=== PATIENT | male | born 1945 | race Caucasian/White ===

== ENCOUNTER 2016-11-20 18:59 | Emergency (ER) | payer OTHER ==
--- NOTE | 2016-11-20 20:36 | DIAGNOSTIC IMAGING REPORT ---
PROCEDURE: XR HUMERUS - LEFT INDICATION: TRAUMA/INJURY TECHNIQUE: Three views of the right humerus COMPARISON: None. FINDINGS: Normal mineralization. Transverse, mildly comminuted fracture across the mid humeral diaphysis. There is moderate lateral angulation, lateral displacement, posterior displacement by one half shaft width and mild impaction/foreshortening of the humeral length. Swelling of the overlying soft tissue but no radiodense foreign body. IMPRESSION: 1. Displaced, impacted, and angulated mid humeral diaphyseal fracture.
--- NOTE | 2016-11-20 20:39 | DIAGNOSTIC IMAGING REPORT ---
PROCEDURE: XR SHOULDER 2 OR MORE VW-LEFT INDICATION: TRAUMA/INJURY TECHNIQUE: Two views of the left shoulder COMPARISON: None. FINDINGS: Normal mineralization. Proximal humeral diaphyseal fracture. No glenohumeral joint dislocation or shoulder separation. Mild degenerative changes at the glenohumeral joint and acromioclavicular joint. No significant swelling around the glenohumeral joint. IMPRESSION: 1. Intact left shoulder. 2. Mid humeral diaphyseal fracture. 3. Mild degenerative changes.
--- NOTE | 2016-11-20 21:12 | DIAGNOSTIC IMAGING REPORT ---
PROCEDURE: CT HEAD WITHOUT CONTRAST INDICATION: TRAUMA/INJURY TECHNIQUE: Axial CT images were acquired through the head. Coronal and sagittal reformations were created. COMPARISON: 08/18/2014 FINDINGS: Mild cerebral cortical atrophy. Minor hypodensity in the periventricular and subcortical white matter. Poorly defined, 3.4 cm sized wedge-shaped area of hypodensity in the left temporal parieto-occipital region adjacent to the left lateral ventricle. Asymmetric volume loss of the left temporal region resulting in slight widening of the left sylvian fissure. Small wedge-shaped area of volume loss involving the right inferior cerebellar hemisphere. No intracranial hemorrhage or extraaxial fluid collections. Ventricles are normal in size, shape and position. There is no mass, mass effect or midline shift. Moderate calcific atherosclerosis of the intracranial internal carotid arteries. The calvarium is intact. Chronic osteitis and trace mucosal thickening of the sphenoid sinuses. Small dependent mucosal thickening of the right maxillary sinus. Sinuses and mastoids are otherwise normally aerated. The extracranial soft tissues and orbits are normal. IMPRESSION: 1. Left temporal parietal occipital wedge-shaped area of hypodensity, infarct of uncertain chronicity. 2. Remote right inferior cerebellar hemispheric infarct. 3. Gliosis/volume loss involving the left MCA territory around the sylvian fissure. 4. These findings are all new compared to the prior study. 5. No evidence of acute intracranial trauma. 6. Discussed with discussed with Dr. Bradley at [address] scans at this facility use dose modulation, iterative reconstruction, and/or weight-based dosing when appropriate to reduce radiation dose to as low as reasonably achievable.
--- NOTE | 2016-11-20 21:25 | ED CLINICAL REPORT ---
Clinical Report - Physicians/Mid Levels [facility] [address] [place] [place] [address] 11/20/2016 19:02 [id number] Time Seen: 19:19. Arrived- By private vehicle. Historian- patient. History limited by vague historian. HISTORY OF PRESENT ILLNESS Chief Complaint: FALL. Location of injuries- right arm. The injury occurred just prior to arrival. Fell; lost balance. Occurred at home. The patient complains of severe pain. The patient sustained a blow to the head. (possibly). No neck pain or loss of consciousness. (patient reports that he was drinking alcohol this afternoon he lost his balance and fell. He is not sure exactly how he injured himself but he reports severe pain in his right arm. He denies numbness or tingling in his fingers.). REVIEW OF SYSTEMS The patient has had hearing loss (chronically). He has had similar symptoms previously. He has had new onset of weakness of the right arm (severe). No headache. All systems otherwise negative, except as recorded above. PAST HISTORY Problems: CVA - Cerebrovascular Accident. Emphysema. Hypertension. Elevated liver enzymes. Back Pain. Cardiomyopathy. Hypercholesterolemia. Atrial Fibrillation. GERD. BPH. Additional Surgeries: Tonsillectomy. Medications: Pt. med list pulled from EMS. Warfarin Sodium Oral. Spiriva HandiHaler Inhalation. Simvastatin Oral. Pantoprazole Sodium Oral. Omeprazole Oral. Metoprolol. Furosemide Oral. Digoxin Oral. ProAir HFA Inhalation. Allergies: No Known Drug Allergy. SOCIAL HISTORY Heavy alcohol use. Last drink was just prior to arrival. Under the influence in E.D. He lives with spouse. FAMILY HISTORY No significant family medical history. ADDITIONAL NOTES The nursing notes have been reviewed. PHYSICAL EXAM Vital Signs: Have been reviewed. Appearance: Alert. Eyes: Pupils equal, round and reactive to light. ENT: No dental injury. Pharynx normal. Neck: Painless ROM. Non-tender. No vertebral tenderness. CVS: Heart sounds normal. Respiratory: Breath sounds normal. Chest nontender. Abdomen: No visible injury. Soft and nontender. Bowel sounds normal. No organomegaly. No mass. Back: No tenderness. ROM normal. No vertebral point tenderness. Skin: Skin warm and dry. Normal skin color. Normal skin turgor. He has a single small abrasion on the right middle finger. Extremities: Right arm: severe tenderness and moderate swelling and deformity consistent with a humerus fracture located in the upper arm. Neurovascular intact distally. Pelvis stable. Neuro: No motor deficit. No sensory deficit. LABS, X-RAYS, AND EKG EKG: Rate: 70. Atrial fibrillation. Non-specific ST segment / T wave abnormalities. Changes present when compared to prior EKG. (18 August 2014). The study has been independently viewed by me. Rt Shoulder X-ray: Fracture of the mid right humerus. The X-rays were independently viewed by me. Rt Humerus X-ray: Fracture of the mid right humerus. The X-rays were independently viewed by me. Laboratory Tests: CBC w Diff: (VARUN: 11/20/2016 19:25) ( [facility] 11/20/2016 19:51) Final results Test Result Flag Units (Reference) WHITE BLOOD COUNT 8.7 K/uL (4.5-11.5) RED BLOOD COUNT 3.74 L M/uL (4.50-5.90) HEMOGLOBIN 12.0 L gm/dL (13.5-17.5) HEMATOCRIT 36.0 L % (41.0-53.0) MEAN CELL VOLUME 96 fL (80-100) MEAN CORPUSCULAR HGB 32 pg (26-34) MEAN CORPUSCULAR HGB CONC 33 g/dL (31-37) RED CELL DISTRIBUTION WIDTH 17.2 H % (11.6-14.8) PLATELET COUNT 266 K/uL (150-400) NEUTROPHIL % 66.4 % (50-75) LYMPH % 23.8 L % (25-40) MONO % 7.5 % (3-14) EOSINOPHIL % 1.6 % (0-4) BASOPHIL % 0.7 % (0-2) PT with INR: (VARUN: 11/20/2016 19:25) ( [facility] 11/20/2016 20:14) Final results Test Result Flag Units (Reference) INR 2.4 H (0.8-1.2) Low Intensity Therapy: INR 1.5-2.0 PT range 18.5-23.1Mod.Intensity Therapy: INR 2.0-3.0 PT range 23.1-31.5High Intensity Therapy: INR 2.5-3.5 PT range 27.4-35.5High Intensity Therapy 2: INR 3.0-4.0 PT range 31.5-39.3 APTT 56 H SECONDS (24-34) Ethyl Alcohol: (VARUN: 11/20/2016 19:28) ( [facility] 11/20/2016 20:20) Final results Test Result Flag Units (Reference) ETHYL ALCOHOL 284 H mg/dL (3-10) CMP: (VARUN: 11/20/2016 19:25) ( [facility] 11/20/2016 20:03) Final results Test Result Flag Units (Reference) GLUCOSE 107 mg/dL (70-110) BUN 10 mg/dL (7-18) CREATININE 1.1 mg/dL (0.6-1.3) Estimated GFR >60 mL/min Estimated GFR- >60 mL/min Note: Persistent reduction over 3 months in eGFR<60 mL/min/1.73 m2 defines CKD. Patients with eGFR values>=60 mL/min/1.73 m2 may also have CKD if evidence ofpersistent proteinuria. Additional information may be foundat www.[email or web address]. SODIUM 136 mmol/L (136-145) POTASSIUM 3.1 L mmol/L (3.5-5.1) CHLORIDE 99 mmol/L (98-107) CARBON DIOXIDE 20 L mmol/L (21-32) CALCIUM 6.2 *L mg/dL (8.5-10.1) CRITICAL RESULTS CALLEDCalled to [facility] 11/20/162001Were 2 patient identifiers used? YWas the result read back? Y TOTAL PROTEIN 6.8 g/dL (6.4-8.2) ALBUMIN 3.0 L g/dL (3.3-5.0) BILIRUBIN, TOTAL 0.4 mg/dL (0.0-1.0) ALKALINE PHOSPHATASE 115 U/L (46-116) AST (SGOT) 19 U/L (15-37) ALT (SGPT) 17 U/L (12-78) . PROGRESS AND PROCEDURES Course of Care: Patient is stable. Consult obtained from orthopedics. Peter. Case discussed. Phone consult only. Will see patient in the office. Patient/family counseled. Old medical records ordered. Disposition: Discharged. Condition: stable. CLINICAL IMPRESSION Closed displaced transverse fracture of the shaft of the right humerus. Alcohol intoxication. Hypocalcemia. Possible head injury. Fall on same level by stumbling. INSTRUCTIONS Apply ice for 20 minutes four times a day until released. Don't apply ice directly to skin and don't use while asleep. No driving or operating machinery while taking medication. (Do not give him any oxycodone tonight. Wait until tomorrow morning after 8 AM. He is not have any of the pain medication if he drinks alcohol.). Warnings: HEAD INJURY PRECAUTIONS: An observer must check on the patient every 2 hours for the next 24 hours to confirm that the patient responds as expected, is not confused, has no new weakness or numbness, and has no other problems. COMPLICATIONS: Complications from this condition are possible. Future problems may include loss of function, pain, deformity and poor fracture healing. It is important to follow up with a physician for further evaluation and treatment. GENERAL WARNINGS: Return or contact your physician immediately if your condition worsens or changes unexpectedly, if not improving as expected, or if other problems arise. Prescription Medications: Oxycodone 5 mg tablets: take 1 orally every 6 hours as needed for pain. Dispense fifteen (15). No refills. Follow-up: Follow up with your doctor Dr. Dubon Tuesday in two days. Call for an appointment. Understanding of the discharge instructions verbalized by patient and family. [facility] with: [facility], , [address] [place], [phone] Follow up Tuesday in two days. Call for an appointment. (Electronically signed by Bill Bradley MD 11/21/2016 21:18)
--- NOTE | 2016-11-20 21:25 | ED CLINICAL REPORT ---
Clinical Report - Physicians/Mid Levels [facility] [address] [place] [place] [address] 11/20/2016 19:02 [id number] Time Seen: 19:19. Arrived- By private vehicle. Historian- patient. History limited by vague historian. HISTORY OF PRESENT ILLNESS Chief Complaint: FALL. Location of injuries- right arm. The injury occurred just prior to arrival. Fell; lost balance. Occurred at home. The patient complains of severe pain. The patient sustained a blow to the head. (possibly). No neck pain or loss of consciousness. (patient reports that he was drinking alcohol this afternoon he lost his balance and fell. He is not sure exactly how he injured himself but he reports severe pain in his right arm. He denies numbness or tingling in his fingers.). REVIEW OF SYSTEMS The patient has had hearing loss (chronically). He has had similar symptoms previously. He has had new onset of weakness of the right arm (severe). No headache. All systems otherwise negative, except as recorded above. PAST HISTORY Problems: CVA - Cerebrovascular Accident. Emphysema. Hypertension. Elevated liver enzymes. Back Pain. Cardiomyopathy. Hypercholesterolemia. Atrial Fibrillation. GERD. BPH. Additional Surgeries: Tonsillectomy. Medications: Pt. med list pulled from EMS. Warfarin Sodium Oral. Spiriva HandiHaler Inhalation. Simvastatin Oral. Pantoprazole Sodium Oral. Omeprazole Oral. Metoprolol. Furosemide Oral. Digoxin Oral. ProAir HFA Inhalation. Allergies: No Known Drug Allergy. SOCIAL HISTORY Heavy alcohol use. Last drink was just prior to arrival. Under the influence in E.D. He lives with spouse. FAMILY HISTORY No significant family medical history. ADDITIONAL NOTES The nursing notes have been reviewed. PHYSICAL EXAM Vital Signs: Have been reviewed. Appearance: Alert. Eyes: Pupils equal, round and reactive to light. ENT: No dental injury. Pharynx normal. Neck: Painless ROM. Non-tender. No vertebral tenderness. CVS: Heart sounds normal. Respiratory: Breath sounds normal. Chest nontender. Abdomen: No visible injury. Soft and nontender. Bowel sounds normal. No organomegaly. No mass. Back: No tenderness. ROM normal. No vertebral point tenderness. Skin: Skin warm and dry. Normal skin color. Normal skin turgor. He has a single small abrasion on the right middle finger. Extremities: Right arm: severe tenderness and moderate swelling and deformity consistent with a humerus fracture located in the upper arm. Neurovascular intact distally. Pelvis stable. Neuro: No motor deficit. No sensory deficit. LABS, X-RAYS, AND EKG EKG: Rate: 70. Atrial fibrillation. Non-specific ST segment / T wave abnormalities. Changes present when compared to prior EKG. (18 August 2014). The study has been independently viewed by me. Rt Shoulder X-ray: Fracture of the mid right humerus. The X-rays were independently viewed by me. Rt Humerus X-ray: Fracture of the mid right humerus. The X-rays were independently viewed by me. Laboratory Tests: CBC w Diff: (VARUN: 11/20/2016 19:25) ( [facility] 11/20/2016 19:51) Final results Test Result Flag Units (Reference) WHITE BLOOD COUNT 8.7 K/uL (4.5-11.5) RED BLOOD COUNT 3.74 L M/uL (4.50-5.90) HEMOGLOBIN 12.0 L gm/dL (13.5-17.5) HEMATOCRIT 36.0 L % (41.0-53.0) MEAN CELL VOLUME 96 fL (80-100) MEAN CORPUSCULAR HGB 32 pg (26-34) MEAN CORPUSCULAR HGB CONC 33 g/dL (31-37) RED CELL DISTRIBUTION WIDTH 17.2 H % (11.6-14.8) PLATELET COUNT 266 K/uL (150-400) NEUTROPHIL % 66.4 % (50-75) LYMPH % 23.8 L % (25-40) MONO % 7.5 % (3-14) EOSINOPHIL % 1.6 % (0-4) BASOPHIL % 0.7 % (0-2) PT with INR: (VARUN: 11/20/2016 19:25) ( [facility] 11/20/2016 20:14) Final results Test Result Flag Units (Reference) INR 2.4 H (0.8-1.2) Low Intensity Therapy: INR 1.5-2.0 PT range 18.5-23.1Mod.Intensity Therapy: INR 2.0-3.0 PT range 23.1-31.5High Intensity Therapy: INR 2.5-3.5 PT range 27.4-35.5High Intensity Therapy 2: INR 3.0-4.0 PT range 31.5-39.3 APTT 56 H SECONDS (24-34) Ethyl Alcohol: (VARUN: 11/20/2016 19:28) ( [facility] 11/20/2016 20:20) Final results Test Result Flag Units (Reference) ETHYL ALCOHOL 284 H mg/dL (3-10) CMP: (VARUN: 11/20/2016 19:25) ( [facility] 11/20/2016 20:03) Final results Test Result Flag Units (Reference) GLUCOSE 107 mg/dL (70-110) BUN 10 mg/dL (7-18) CREATININE 1.1 mg/dL (0.6-1.3) Estimated GFR >60 mL/min Estimated GFR- >60 mL/min Note: Persistent reduction over 3 months in eGFR<60 mL/min/1.73 m2 defines CKD. Patients with eGFR values>=60 mL/min/1.73 m2 may also have CKD if evidence ofpersistent proteinuria. Additional information may be foundat [email or web address]. SODIUM 136 mmol/L (136-145) POTASSIUM 3.1 L mmol/L (3.5-5.1) CHLORIDE 99 mmol/L (98-107) CARBON DIOXIDE 20 L mmol/L (21-32) CALCIUM 6.2 *L mg/dL (8.5-10.1) CRITICAL RESULTS CALLEDCalled to [facility] 11/20/162001Were 2 patient identifiers used? YWas the result read back? Y TOTAL PROTEIN 6.8 g/dL (6.4-8.2) ALBUMIN 3.0 L g/dL (3.3-5.0) BILIRUBIN, TOTAL 0.4 mg/dL (0.0-1.0) ALKALINE PHOSPHATASE 115 U/L (46-116) AST (SGOT) 19 U/L (15-37) ALT (SGPT) 17 U/L (12-78) . PROGRESS AND PROCEDURES Course of Care: Patient is stable. Consult obtained from orthopedics. Peter. Case discussed. Phone consult only. Will see patient in the office. Patient/family counseled. Old medical records ordered. Disposition: Discharged. Condition: stable. CLINICAL IMPRESSION Closed displaced transverse fracture of the shaft of the right humerus. Alcohol intoxication. Hypocalcemia. Possible head injury. Fall on same level by stumbling. INSTRUCTIONS Apply ice for 20 minutes four times a day until released. Don't apply ice directly to skin and don't use while asleep. No driving or operating machinery while taking medication. (Do not give him any oxycodone tonight. Wait until tomorrow morning after 8 AM. He is not have any of the pain medication if he drinks alcohol.). Warnings: HEAD INJURY PRECAUTIONS: An observer must check on the patient every 2 hours for the next 24 hours to confirm that the patient responds as expected, is not confused, has no new weakness or numbness, and has no other problems. COMPLICATIONS: Complications from this condition are possible. Future problems may include loss of function, pain, deformity and poor fracture healing. It is important to follow up with a physician for further evaluation and treatment. GENERAL WARNINGS: Return or contact your physician immediately if your condition worsens or changes unexpectedly, if not improving as expected, or if other problems arise. Prescription Medications: Oxycodone 5 mg tablets: take 1 orally every 6 hours as needed for pain. Dispense fifteen (15). No refills. Follow-up: Follow up with your doctor Dr. Dubon Tuesday in two days. Call for an appointment. Understanding of the discharge instructions verbalized by patient and family. [facility] with: [facility], , [address] [place], [phone] Follow up Tuesday in two days. Call for an appointment. (Electronically signed by Bill Bradley MD 11/21/2016 21:18)
--- NOTE | 2016-11-20 21:25 | ED NURSING NOTES ---
Clinical Report - Nurses [place] [address] [place] [address] 11/20/2016 19:02 [id number] TRI[facility] Triage time 19:05. Acuity: LEVEL 3. Chief Complaint: FALL while walking, onto a hard surface; tripped (GLF:right shoulder and upper arm). Alert. No acute distress. SEPSIS SCREEN: Sepsis Screen. Negative (no infection suspected/documented). MALICK COMA SCORE: [place] Coma Scale: 15- eyes open spontaneously (4); best verbal response- oriented x 4 (5); best motor response- obeys commands (6). --19:22 Angie Gandhi R.N. 19:12 11/20/16. BP: 91/64. HR: 70. RR: 16. O2 saturation: 94%. Temp: 97.2 F. Pain level now 05/18. --19:22 Angie Gandhi R.N. Weight: 97.5 kg stated. Height/Length: 72 inches Per Patient. BMI: 29.2. --19:21 Angie Gandhi R.N. Medications ProAir HFA Inhalation. --19:15 Angie Gandhi R.N. Digoxin Oral. --19:15 Angie Gandhi R.N. Furosemide Oral. --19:15 Angie Gandhi R.N. Metoprolol. --19:15 Angie Gandhi R.N. Omeprazole Oral. --19:15 Angie Gandhi R.N. Pantoprazole Sodium Oral. --19:16 Angie Gandhi R.N. Simvastatin Oral. --19:16 Angie Gandhi R.N. Spiriva HandiHaler Inhalation. --19:16 Angie Gandhi R.N. Warfarin Sodium Oral. --19:16 Angie Gandhi R.N. Pt. med list pulled from EMS. --19:16 Angie Gandhi R.N. Allergies No Known Drug Allergy. --19:16 Angie Gandhi R.N. History Arrived by EMS. Historian: patient. Unaccompanied. Primary physician (Dr. Dubon). Location of injuries: right arm. This occurred today. Treatment STAFF PSYCHIATRIST: None. PAST MEDICAL HX: Tetanus status: unknown. Immunizations: status is unknown. SOCIAL HX: Never smoker. Regular alcohol use. No drug use. No infectious disease exposure. ABUSE ASSESSMENT: No report of abuse. NUTRITIONAL RISK ASSESSMENT: The nutritional risk assessment revealed no deficiencies. FUNCTIONAL ASSESSMENT: Functional assessment: no impairments noted. LEARNING NEEDS ASSESSMENT: The learning needs assessment revealed no barriers. --19:22 Angie Gandhi R.N. PROBLEMS: CVA - Cerebrovascular Accident. Emphysema. Hypertension. Elevated liver enzymes. Back Pain. Cardiomyopathy. Hypercholesterolemia. Atrial Fibrillation. GERD. BPH. --19:16 Angie Gandhi R.N. ADDITIONAL SURGERIES: Tonsillectomy. --19:17 Angie Gandhi R.N. Interventions ID band on patient. Transported via stretcher. --19:22 Angie Gandhi R.N. PHYSICAL ASSESSMENT 19:05. To room via stretcher. GENERAL / NEURO / PSYCH: Alert. Appears in no acute distress. ( pt. is tearful. Alert but confused. Smells of ETOH. States he was drinking "alot" today.). RESPIRATORY: Respirations not labored. CVS: Pulses within normal limits. Capillary refill less than 2 seconds. GI / : Abdomen soft and nontender. EXTREMITIES: Right arm: tenderness and swelling. SKIN: Skin intact. Skin is warm and dry. --19:18 nAgie Gandhi R.N. NURSING PROGRESS NOTES 19:05. Two patient identifiers checked. Call light placed in reach. Side rails up x 2. Bed placed in lowest position. Brakes of bed on. Patient ready for evaluation- chart flagged. --19:19 Angie Gandhi R.N. Extremity elevated. --19:19 Angie Gandhi R.N. 19:23 11/20/2016 Site #1 started via IV in the left forearm with an 20g angiocath, with aseptic technique and good blood return; one attempt. Blood drawn: rainbow set. Labeled in the presence of the patient and sent to the lab. Saline lock flushed with 10 mL saline (Accessed by CARMEL Painter). --19:23 Angie Gandhi R.N. Care transferred and report given (to CARMEL Painter). --19:25 Angie Gandhi R.N. Two patient identifiers checked. Call light placed in reach. Side rails up x 1. Bed placed in lowest position. Brakes of bed on. Care transferred and report received (received report from Angie BURT, assumed care of PT). --19:34 Madina Tapia R.N. 19:35 11/20/2016 Started bag #1 1000 mL IV Fluids IV NS (Saline); over 1 hour(s) via site #1. Allergies verified and confirmed 5 rights. IV patency established. IV site checked: no pain, redness, or swelling. IV flushed thoroughly pre- and post-medication administration. --19:35 Madina Tapia R.N. 19:55. Patient transported to radiology and CT by stretcher with tech. --19:55 McKarol Dunn, ER Tech1 20:04 11/20/16. Critical value relayed to ED by Haim Rabago Tech. Critical value received by Bryson Escudero RN. Calcium: 6.2. ED physician notifed of critical value. --20:04 Bryson Escudero R.N. 20:10. Sling applied to right arm by denture laboratory technician; (Applied for stability while patient is in CT). --20:13 McQugus Karol, ER Tech1 <<STRICKEN ENTRY-- 20:36 11/20/2016 Calcium Gluconate IVP 2 gm given over 30 minute(s) via site #1. Allergies verified and confirmed 5 rights. IV patency established. IV site checked: no pain, redness, or swelling. IV flushed thoroughly pre- and post-medication administration. IVP given by RN. --20:36 Madina Tapia R.N. --END STRIKE>> Change to Details. --20:41 Madina Tapia R.N. 20:36 11/20/2016 Calcium Gluconate IVP 2 gm given over 1 hour(s) via site #1. Allergies verified and confirmed 5 rights. IV patency established. IV site checked: no pain, redness, or swelling. IV flushed thoroughly pre- and post-medication administration. IVP given by RN. --20:41 Madina Tapia R.N. 20:00 11/20/16. BP: 91/64. HR: 91. RR: 16. O2 saturation: 94% on room air. --21:22 Bryson Escudero R.N. 21:00 11/20/16. BP: 99/58. HR: 82 (irregularly-irregular). RR: 24. O2 saturation: 93% on room air. --21:23 Bryson Escudero R.N. DISPOSITION / DISCHARGE <<STRICKEN ENTRY-- 20:35 11/20/2016 IV Fluids IV NS Discontinued: upon discharge. Total amount infused: 100 mL. IV patency established. IV site checked: no pain, redness, or swelling. IV flushed thoroughly. --21:56 Madina Tapia R.N. --END STRIKE>> Change to Details. --21:56 Madina Tapia R.N. 21:35 11/20/2016 IV Fluids IV NS Discontinued: upon discharge. Total amount infused: 100 mL. IV patency established. IV site checked: no pain, redness, or swelling. IV flushed thoroughly. --21:56 Madina Tapia R.N. 21:44 11/20/2016 Site #1 removed upon discharge. Manual pressure and bandage applied. --21:55 Madina Tapia R.N. Departure time: 2143. Condition at departure: improved and stable. No learning barriers present. Discharge instructions provided and reviewed with educational paraprofessional. Reviewed medication(s) side effects, precautions, dosing and course information. Prescription(s) given to the patient. Reviewed referral to an orthopedic surgeon for followup. Activity restrictions (minimal use of injured extremity and no driving) reviewed. Patient and educational paraprofessional verbalized understanding. Written instructions provided in Arabic. The patient was discharged home and accompanied by educational paraprofessional. He left the Emergency Department ambulatory and via private vehicle. Zipper Lining Folder driving. --21:57 Madina Tapia R.N. 21:44 11/20/16. BP: 108/70 taken on the left arm, while lying. HR: 81 (regular and normal rate). RR: 18 (regular and unlabored). O2 saturation: 93% on room air. Temp: deferred. Pain level now: 09/15. --21:57 Madina Tapia R.N. Locked/Released at 11/20/2016 21:57 by Madina Tapia R.N.
--- NOTE | 2016-11-20 21:25 | ED NURSING NOTES ---
Clinical Report - Nurses [place] [address] [place] [address] 11/20/2016 19:02 [id number] TRIAGE Triage time 19:05. Acuity: LEVEL 3. Chief Complaint: FALL while walking, onto a hard surface; tripped (GLF:right shoulder and upper arm). Alert. No acute distress. SEPSIS SCREEN: Sepsis Screen. Negative (no infection suspected/documented). MALICK COMA SCORE: [place] Coma Scale: 15- eyes open spontaneously (4); best verbal response- oriented x 4 (5); best motor response- obeys commands (6). --19:22 Angie Gandhi R.N. 19:12 11/20/16. BP: 91/64. HR: 70. RR: 16. O2 saturation: 94%. Temp: 97.2 F. Pain level now 05/18. --19:22 Angie Gandhi R.N. Weight: 97.5 kg stated. Height/Length: 72 inches Per Patient. BMI: 29.2. --19:21 Angie Gandhi R.N. Medications ProAir HFA Inhalation. --19:15 Angie Gandhi R.N. Digoxin Oral. --19:15 Angie Gandhi R.N. Furosemide Oral. --19:15 Angie Gandhi R.N. Metoprolol. --19:15 Angie Gandhi R.N. Omeprazole Oral. --19:15 Angie Gandhi R.N. Pantoprazole Sodium Oral. --19:16 Angie Gandhi R.N. Simvastatin Oral. --19:16 Angie Gandhi R.N. Spiriva HandiHaler Inhalation. --19:16 Angie Gandhi R.N. Warfarin Sodium Oral. --19:16 Angie Gandhi R.N. Pt. med list pulled from EMS. --19:16 Angie Gandhi R.N. Allergies No Known Drug Allergy. --19:16 Angie Gandhi R.N. History Arrived by EMS. Historian: patient. Unaccompanied. Primary physician (Dr. Dubon). Location of injuries: right arm. This occurred today. Treatment SUPERVISOR OF GUIDANCE AND TESTING: None. PAST MEDICAL HX: Tetanus status: unknown. Immunizations: status is unknown. SOCIAL HX: Never smoker. Regular alcohol use. No drug use. No infectious disease exposure. ABUSE ASSESSMENT: No report of abuse. NUTRITIONAL RISK ASSESSMENT: The nutritional risk assessment revealed no deficiencies. FUNCTIONAL ASSESSMENT: Functional assessment: no impairments noted. LEARNING NEEDS ASSESSMENT: The learning needs assessment revealed no barriers. --19:22 Angie Gandhi R.N. PROBLEMS: CVA - Cerebrovascular Accident. Emphysema. Hypertension. Elevated liver enzymes. Back Pain. Cardiomyopathy. Hypercholesterolemia. Atrial Fibrillation. GERD. BPH. --19:16 Angie Gandhi R.N. ADDITIONAL SURGERIES: Tonsillectomy. --19:17 Angie Gandhi R.N. Interventions ID band on patient. Transported via stretcher. --19:22 Angie Gandhi R.N. PHYSICAL ASSESSMENT 19:05. To room via stretcher. GENERAL / NEURO / PSYCH: Alert. Appears in no acute distress. ( pt. is tearful. Alert but confused. Smells of ETOH. States he was drinking "alot" today.). RESPIRATORY: Respirations not labored. CVS: Pulses within normal limits. Capillary refill less than 2 seconds. GI / : Abdomen soft and nontender. EXTREMITIES: Right arm: tenderness and swelling. SKIN: Skin intact. Skin is warm and dry. --19:18 Angie Gandhi R.N. NURSING PROGRESS NOTES 19:05. Two patient identifiers checked. Call light placed in reach. Side rails up x 2. Bed placed in lowest position. Brakes of bed on. Patient ready for evaluation- chart flagged. --19:19 Angie Gandhi R.N. Extremity elevated. --19:19 Angie Gandhi R.N. 19:23 11/20/2016 Site #1 started via IV in the left forearm with an 20g angiocath, with aseptic technique and good blood return; one attempt. Blood drawn: rainbow set. Labeled in the presence of the patient and sent to the lab. Saline lock flushed with 10 mL saline (Accessed by CARMEL Painter). --19:23 Angie Gandhi R.N. Care transferred and report given (to CARMEL Painter). --19:25 Angie Gandhi R.N. Two patient identifiers checked. Call light placed in reach. Side rails up x 1. Bed placed in lowest position. Brakes of bed on. Care transferred and report received (received report from Angie BURT, assumed care of PT). --19:34 Madina Tapia R.N. 19:35 11/20/2016 Started bag #1 1000 mL IV Fluids IV NS (Saline); over 1 hour(s) via site #1. Allergies verified and confirmed 5 rights. IV patency established. IV site checked: no pain, redness, or swelling. IV flushed thoroughly pre- and post-medication administration. --19:35 Madina Tapia R.N. 19:55. Patient transported to radiology and CT by stretcher with tech. --19:55 McKarol Dunn, ER Tech1 20:04 11/20/16. Critical value relayed to ED by Haim Rabago Tech. Critical value received by Bryson Escudero RN. Calcium: 6.2. ED physician notifed of critical value. --20:04 Bryson Escudero R.N. 20:10. Sling applied to right arm by electrical equipment technician; (Applied for stability while patient is in CT). --20:13 McQugus Karol, ER Tech1 <<STRICKEN ENTRY-- 20:36 11/20/2016 Calcium Gluconate IVP 2 gm given over 30 minute(s) via site #1. Allergies verified and confirmed 5 rights. IV patency established. IV site checked: no pain, redness, or swelling. IV flushed thoroughly pre- and post-medication administration. IVP given by RN. --20:36 Madina Tapia R.N. --END STRIKE>> Change to Details. --20:41 Madina Tapia R.N. 20:36 11/20/2016 Calcium Gluconate IVP 2 gm given over 1 hour(s) via site #1. Allergies verified and confirmed 5 rights. IV patency established. IV site checked: no pain, redness, or swelling. IV flushed thoroughly pre- and post-medication administration. IVP given by RN. --20:41 Madina Tapia R.N. 20:00 11/20/16. BP: 91/64. HR: 91. RR: 16. O2 saturation: 94% on room air. --21:22 Bryson Escudero R.N. 21:00 11/20/16. BP: 99/58. HR: 82 (irregularly-irregular). RR: 24. O2 saturation: 93% on room air. --21:23 Bryson Escudero R.N. DISPOSITION / DISCHARGE <<STRICKEN ENTRY-- 20:35 11/20/2016 IV Fluids IV NS Discontinued: upon discharge. Total amount infused: 100 mL. IV patency established. IV site checked: no pain, redness, or swelling. IV flushed thoroughly. --21:56 Madina Tapia R.N. --END STRIKE>> Change to Details. --21:56 Madina Tapia R.N. 21:35 11/20/2016 IV Fluids IV NS Discontinued: upon discharge. Total amount infused: 100 mL. IV patency established. IV site checked: no pain, redness, or swelling. IV flushed thoroughly. --21:56 Madina Tapia R.N. 21:44 11/20/2016 Site #1 removed upon discharge. Manual pressure and bandage applied. --21:55 Madina Tapia R.N. Departure time: 2143. Condition at departure: improved and stable. No learning barriers present. Discharge instructions provided and reviewed with busser. Reviewed medication(s) side effects, precautions, dosing and course information. Prescription(s) given to the patient. Reviewed referral to an orthopedic surgeon for followup. Activity restrictions (minimal use of injured extremity and no driving) reviewed. Patient and busser verbalized understanding. Written instructions provided in Greenlandic. The patient was discharged home and accompanied by busser. He left the Emergency Department ambulatory and via private vehicle. Nylon Hot Wire Cutter driving. --21:57 Madina Tapia R.N. 21:44 11/20/16. BP: 108/70 taken on the left arm, while lying. HR: 81 (regular and normal rate). RR: 18 (regular and unlabored). O2 saturation: 93% on room air. Temp: deferred. Pain level now: 09/15. --21:57 Madina Tapia R.N. Locked/Released at 11/20/2016 21:57 by Madina Tapia R.N.
--- NOTE | 2016-11-20 21:25 | ED ORDER SUMMARY ---
..... Patient: NIKKI WILEY OrderSheet [facility] VisitID: [id number] [place] [address] 71y, M Registration Date/Time: 11/20/2016 ORDER SHEET Weight: 97.5 kg (stated) Allergies: No Known Drug Allergy GENERAL ORDERS: CMP Urgent (19:24 11/20/2016 SReitz R.N. per protocol) (Ack 19:25 AMcQuoid ER Tech1) (19:34 CBradburn R.N.) CBC w Diff Urgent (19:24 11/20/2016 SReitz R.N. per protocol) (Ack 19:25 AMcQuoid ER Tech1) (19:34 CBradburn R.N.) PT with INR Urgent (19:24 11/20/2016 SReitz R.N. per protocol) (Ack 19:25 AMcQuoid ER Tech1) (19:34 CBradburn R.N.) Humerus Left Urgent (19:32 11/20/2016 AMcQuoid ER Tech1 verbal order read back to Kee BLACKMON) (Ack 19:33 AMcQuoid ER Tech1) (20:07 CBradburn R.N.) Shoulder 2V or more Left Urgent (19:32 11/20/2016 AMcQuoid ER Tech1 verbal order read back to Kee BLACKMON) (Ack 19:33 AMcQuoid ER Tech1) (20:07 CBradburn R.N.) CT Head wo Cont Urgent (19:43 11/20/2016 Kee BLACKMON) (Ack 19:46 AMcQuoid ER Tech1) (20:22 RFay) PTT Urgent (19:43 11/20/2016 Kee BLACKMON) (Ack 19:46 AMcQuoid ER Tech1) (19:46 AMcQuoid ER Tech1) Ethyl Alcohol Urgent (19:43 11/20/2016 Kee BLACKMON) (Ack 19:46 AMcQuoid ER Tech1) (19:46 AMcQuoid ER Tech1) EKG - ER Stat (20:06 11/20/2016 Kee BLACKMON) (20:36 CBradburn R.N.) MEDICATION ORDERS: IV FLUIDS: IV NS : initial bolus none -, then 1000 mL/hr for X1 (NOW) (19:23 11/20/2016 Linda R.NCarrie per protocol) (19:35 Art R.N.) Calcium Gluconate IV 2 gm/100mL (HIGH ALERT MEDICATION, NOW) (20:07 11/20/2016 Kee BLACKMON) (Ack 20:35 CBradburn R.N.) (20:36 CBmiladysburn R.N.) ORDER SHEET NOTES: [Electronically signed by Madina Tapia R.N. (21:57 11/20/2016)] [Electronically signed by Bill Bradley MD (21:18 11/21/2016)] [Electronically locked/signed by Madina Tapia R.N. (21:57 11/20/2016)]
--- NOTE | 2016-11-20 21:25 | ED ORDER SUMMARY ---
..... Patient: NIKKI WILEY OrderSheet [facility] VisitID: [id number] [place] [address] 71y, M Registration Date/Time: 11/20/2016 ORDER SHEET Weight: 97.5 kg (stated) Allergies: No Known Drug Allergy GENERAL ORDERS: CMP Urgent (19:24 11/20/2016 SReitz R.N. per protocol) (Ack 19:25 AMcQuoid ER Tech1) (19:34 CBradburn R.N.) CBC w Diff Urgent (19:24 11/20/2016 SReitz R.N. per protocol) (Ack 19:25 AMcQuoid ER Tech1) (19:34 CBradburn R.N.) PT with INR Urgent (19:24 11/20/2016 SReitz R.N. per protocol) (Ack 19:25 AMcQuoid ER Tech1) (19:34 CBradburn R.N.) Humerus Left Urgent (19:32 11/20/2016 AMcQuoid ER Tech1 verbal order read back to Kee BLACKMON) (Ack 19:33 AMcQuoid ER Tech1) (20:07 CBradburn R.N.) Shoulder 2V or more Left Urgent (19:32 11/20/2016 AMcQuoid ER Tech1 verbal order read back to Kee BLACKMON) (Ack 19:33 AMcQuoid ER Tech1) (20:07 CBradburn R.N.) CT Head wo Cont Urgent (19:43 11/20/2016 Kee BLACKMON) (Ack 19:46 AMcQuoid ER Tech1) (20:22 RFay) PTT Urgent (19:43 11/20/2016 Kee BLACKMON) (Ack 19:46 AMcQuoid ER Tech1) (19:46 AMcQuoid ER Tech1) Ethyl Alcohol Urgent (19:43 11/20/2016 Kee BLACKMON) (Ack 19:46 AMcQuoid ER Tech1) (19:46 AMcQuoid ER Tech1) EKG - ER Stat (20:06 11/20/2016 Kee BLACKMON) (20:36 CBradburn R.N.) MEDICATION ORDERS: IV FLUIDS: IV NS : initial bolus none -, then 1000 mL/hr for X1 (NOW) (19:23 11/20/2016 Linda R.NCarrie per protocol) (19:35 Art R.N.) Calcium Gluconate IV 2 gm/100mL (HIGH ALERT MEDICATION, NOW) (20:07 11/20/2016 Kee BLACKMON) (Ack 20:35 CBradburn R.N.) (20:36 CBmiladysburn R.N.) ORDER SHEET NOTES: [Electronically signed by Madina Tapia R.N. (21:57 11/20/2016)] [Electronically signed by Bill Bradley MD (21:18 11/21/2016)] [Electronically locked/signed by Madina Tapia R.N. (21:57 11/20/2016)]
--- NOTE | 2016-11-21 21:18 | ED MAR SUMMARY ---
..... Medication Administration Record [facility] [address] [place] [address] Patient: NIKKI WILEY Visit ID: [id number] 71y, M Weight: 97.5 kg Height/Length: 72 in BMI: 29.2 ALLERGIES: No Known Drug Allergy Start 19:35 11/20/2016 Madina Tapia R.N., Stop 21:35 11/20/2016 Madina Tapia R.N. Medication Administered: IV NS (SALINE), Dose: IV Fluids over 1 hour(s), Dispensed: 1000 mL bag, Site: #1 left forearm. Medication Ordered: IV NS : initial bolus none -, then 1000 mL/hr for X1 (NOW). Given 20:36 11/20/2016 Madina Tapia R.N. Medication Administered: CALCIUM GLUCONATE [IVP], Dose: 2 gm IVP over 1 hour(s), Site: #1 left forearm. Medication Ordered: Calcium Gluconate IV 2 gm/100mL (HIGH ALERT MEDICATION, NOW).
--- NOTE | 2016-11-21 21:18 | ED DISCHARGE INSTRUCTIONS ---
Patient: NIKKI WILEY General Instructions Formerly [facility] VisitID: [id number] [address], [place] [address] 71y, M Registration Date/Time: 11/20/2016 Closed displaced transverse fracture of the shaft of the right humerus. Alcohol intoxication. Hypocalcemia. Fall on same level by stumbling. INSTRUCTIONS Apply ice for 20 minutes four times a day until released. Don't apply ice directly to skin and don't use while asleep. No driving or operating machinery while taking medication. (Do not give him any oxycodone tonight. Wait until tomorrow morning after 8 AM. He is not have any of the pain medication if he drinks alcohol.). Warnings: HEAD INJURY PRECAUTIONS: An observer must check on the patient every 2 hours for the next 24 hours to confirm that the patient responds as expected, is not confused, has no new weakness or numbness, and has no other problems. COMPLICATIONS: Complications from this condition are possible. Future problems may include loss of function, pain, deformity and poor fracture healing. It is important to follow up with a physician for further evaluation and treatment. GENERAL WARNINGS: Return or contact your physician immediately if your condition worsens or changes unexpectedly, if not improving as expected, or if other problems arise. Prescription Medications: Oxycodone 5 mg tablets: take 1 orally every 6 hours as needed for pain. Dispense fifteen (15). No refills. Follow-up: Follow up with your doctor Dr. Dubon Tuesday in two days. Call for an appointment. Understanding of the discharge instructions verbalized by patient and family. Follow-up with: [facility], , [address], , [place], [id number] Follow up Tuesday in two days. Call for an appointment. ADDITIONAL INFORMATION Mechanical Fall You have had a fall today. It appears that the cause is mechanical. That means that you slipped, tripped or lost your balance. If your fall had been due to fainting or a seizure, further tests would be required. Home Care: Rest today and resume your normal activities when you are feeling back to normal. If you were injured during the fall, follow the advice from your doctor regarding care of your injury. You may use acetaminophen (Tylenol) or ibuprofen (Motrin, Advil) to control pain, unless another pain medicine was prescribed. [NOTE: If you have chronic liver or kidney disease or ever had a stomach ulcer or GI bleeding, talk with your doctor before using these medicines.] Fall Prevention: Was there anything that caused your fall that can be fixed, removed, or replaced? Make your home safe by keeping walkways clear of objects you may trip over. Use non-slip pads under rugs. Do not walk in poorly lit areas. Do not stand on chairs or wobbly ladders. Use caution when reaching overhead or looking upward. This position can cause a loss of balance. Be sure your shoes fit properly, have non-slip bottoms and are in good condition. Be cautious when going up and down curbs, and walking on uneven sidewalks. If your balance is poor, consider using a cane or walker. Stay as active as you can. Balance, flexibility, strength, and endurance all come from exercise. They all play a role in preventing falls. Follow Up with your doctor or as advised by our staff. Get Prompt Medical Attention if any of the following occur: Repeated mechanical falls, or unexplained falls Dizziness, fainting or seizure Severe headache Chest pain or shortness of breath Palpitations (very rapid or very slow or irregular heartbeat) Blood in vomit, stools (black or red color) Weakness of an arm or leg or one side of the face Difficulty with speech or vision Alcohol Intoxication Alcohol intoxication occurs when you drink alcohol faster than your liver can remove it from your system. Alcohol intoxication affects your judgment and coordination. Very high blood alcohol levels can cause coma, very slow breathing and even . If you drink alcohol every day, this may gradually cause permanent damage to your liver, brain, heart, pancreas and other organs. Alcohol use during may cause permanent damage to the growing baby. Home Care: Do not drink any more alcohol. DO NOT DRIVE until all effects of the alcohol have worn off. Get lots of rest over the next few days. Drink plenty of water and other non-alcoholic liquids. Try to eat regular meals. If you have been drinking heavily on a daily basis, you may go through alcohol withdrawl. This is also called the shakes or DTs. The usual symptoms last 3 to 4 days and may include nervousness, shakiness, nausea, sweating or sleeplessness. During this time, it is best that you stay with family or friends who can help and support you. You can also admit yourself to a residential detox program. If your symptoms are severe, contact your doctor for medicines to help. Follow Up: If alcohol is causing a problem in your life, these and other organizations can help you: Alcoholics Anonymous offers support through a self-help fellowship. There are no dues or fees. See the Yellow Pages and call for time and place of meetings. www.aa.org [employer] offers support to families of alcohol users. 812.116.9261 www.al-anon.org [employer] [place] [employer] Alcoholism And Drug Dependence 040-440-5196 www.ncadd.org There are also inpatient or residential alcohol detox programs. Check the Internet or phonebook Yellow Pages under Drug Abuse & Treatment Centers. Get Prompt Medical Attention if any of the following occur: there) Head Injury With Wake-Up (Adult) You have had a head injury. It does not appear serious at this time. Symptoms of a more serious problem (concussion, bruising, or bleeding in the brain) may appear later. Therefore, watch for the WARNING SIGNS listed below. Home Care: During the next 24 hours someone must stay with you. This person should wake you every 2 hours to check for the signs below. If you have swelling of the face or scalp, apply an ice pack (ice cubes in a plastic bag, wrapped in a towel) for 20 minutes every 1-2 hours until the swelling starts to go down. Do not use aspirin or ibuprofen (Motrin, Advil) after a head injury. You may use acetaminophen (Tylenol) to control pain, unless another pain medicine was prescribed. [NOTE: If you have chronic liver or kidney disease or ever had a stomach ulcer or GI bleeding, talk with your doctor before using these medicines.] For the next 24 hours: Do not take alcohol, sedatives, or medicines that make you sleepy. Do not drive or operate machinery. Avoid strenuous activities. No lifting or straining. If you have had any symptoms of a concussion today (nausea, vomiting, dizziness, confusion, headache, memory loss, or you were knocked out), do not return to sports or any activity that could result in another head injury until all symptoms are gone and you have been cleared by your doctor. A second head injury before fully recovering from the first one can lead to serious brain injury. Follow Up with your doctor if symptoms are not improving after 24 hours, or as directed. [NOTE: A radiologist will review any X-rays or CT scans that were taken. We will notify you of any new findings that may affect your care.] Get Prompt Medical Attention if any of the following WARNING SIGNS occur: Repeated vomiting Severe or worsening headache or dizziness Unusual drowsiness, or unable to awaken as usual Confusion or change in behavior or speech, memory loss, blurred vision Convulsion (seizure) Increasing scalp or face swelling Redness, warmth or pus from the swollen area Fluid drainage or bleeding from the nose or ears Oxycodone Hydrochloride, Acetaminophen Oral tablet What is this medicine? ACETAMINOPHEN; OXYCODONE (a set a PAN norma fen; ox i KOE done) is a pain reliever. It is used to treat mild to moderate pain. How should I use this medicine? Take this medicine by mouth with a full glass of water. Follow the directions on the prescription label. Take your medicine at regular intervals. Do not take your medicine more often than directed. Talk to your rack carrier regarding the use of this medicine in children. Special care may be needed. Patients over 65 years old may have a stronger reaction and need a smaller dose. What side effects may I notice from receiving this medicine? Side effects that you should report to your doctor or health insurance healthcare consultant as soon as possible: allergic reactions like skin rash, itching or hives, swelling of the face, lips, or tongue breathing difficulties, wheezing confusion light headedness or fainting spells severe stomach pain yellowing of the skin or the whites of the eyes Side effects that usually do not require medical attention (report to your doctor or health insurance healthcare consultant if they continue or are bothersome): dizziness drowsiness nausea vomiting What may interact with this medicine? alcohol antihistamines barbiturates like amobarbital, butalbital, butabarbital, methohexital, pentobarbital, phenobarbital, thiopental, and secobarbital benztropine drugs for bladder problems like solifenacin, trospium, oxybutynin, tolterodine, hyoscyamine, and methscopolamine drugs for breathing problems like ipratropium and tiotropium drugs for certain stomach or intestine problems like propantheline, homatropine methylbromide, glycopyrrolate, atropine, belladonna, and dicyclomine general anesthetics like etomidate, ketamine, nitrous oxide, propofol, desflurane, enflurane, halothane, isoflurane, and sevoflurane medicines for depression, anxiety, or psychotic disturbances medicines for sleep muscle relaxants naltrexone narcotic medicines (opiates) for pain phenothiazines like perphenazine, thioridazine, chlorpromazine, mesoridazine, fluphenazine, prochlorperazine, promazine, and trifluoperazine scopolamine tramadol trihexyphenidyl What if I miss a dose? If you miss a dose, take it as soon as you can. If it is almost time for your next dose, take only that dose. Do not take double or extra doses. Where should I keep my medicine? Keep out of the reach of children. This medicine can be abused. Keep your medicine in a safe place to protect it from theft. Do not share this medicine with anyone. Selling or giving away this medicine is dangerous and against the law. Store at room temperature between 20 and 25 degrees C (68 and 77 degrees F). Keep container tightly closed. Protect from light. This medicine may cause accidental overdose and if it is taken by other adults, children, or pets. Flush any unused medicine down the toilet to reduce the chance of harm. Do not use the medicine after the expiration date. What should I tell my health care provider before I take this medicine? They need to know if you have any of these conditions: brain tumor Crohn's disease, inflammatory bowel disease, or ulcerative colitis drink more than 3 alcohol containing drinks per day drug abuse or addiction head injury heart or circulation problems kidney disease or problems going to the bathroom liver disease lung disease, asthma, or breathing problems an unusual or allergic reaction to acetaminophen, oxycodone, other opioid analgesics, other medicines, foods, dyes, or preservatives or trying to get breast-feeding What should I watch for while using this medicine? Tell your doctor or health insurance healthcare consultant if your pain does not go away, if it gets worse, or if you have new or a different type of pain. You may develop tolerance to the medicine. Tolerance means that you will need a higher dose of the medication for pain relief. Tolerance is normal and is expected if you take this medicine for a long time. Do not suddenly stop taking your medicine because you may develop a severe reaction. Your body becomes used to the medicine. This does NOT mean you are addicted. Addiction is a behavior related to getting and using a drug for a non-medical reason. If you have pain, you have a medical reason to take pain medicine. Your doctor will tell you how much medicine to take. If your doctor wants you to stop the medicine, the dose will be slowly lowered over time to avoid any side effects. You may get drowsy or dizzy. Do not drive, use machinery, or do anything that needs mental alertness until you know how this medicine affects you. Do not stand or sit up quickly, especially if you are an older patient. This reduces the risk of dizzy or fainting spells. Alcohol may interfere with the effect of this medicine. Avoid alcoholic drinks. There are different types of narcotic medicines (opiates) for pain. If you take more than one type at the same time, you may have more side effects. Give your health care provider a list of all medicines you use. Your doctor will tell you how much medicine to take. Do not take more medicine than directed. Call emergency for help if you have problems breathing. The medicine will cause constipation. Try to have a bowel movement at least every 2 to 3 days. If you do not have a bowel movement for 3 days, call your doctor or health insurance healthcare consultant. Do not take Tylenol (acetaminophen) or medicines that have acetaminophen with this medicine. Too much acetaminophen can be very dangerous. Many nonprescription medicines contain acetaminophen. Always read the labels carefully to avoid taking more acetaminophen. You have been given the following additional information: Fall, Mechanical Alcohol Intoxication HEAD INJURY with Wake-Up (Adult) Oxycodone Hydrochloride, Acetaminophen Oral tablet No driving or operating machinery while taking medication. (Electronically signed by Bill Bradley MD 11/21/2016 21:18)
--- NOTE | 2016-11-21 21:18 | ED MED RECONCILIATION SUMMARY ---
Patient: NIKKI WILEY Medication Reconciliation Report [facility] VisitID: [id number] [place] [address] 71y, M Registration Date/Time: 11/20/2016 Weight: 97.5 kg Height/Length: 72 in. BMI: 29.2 ALLERGIES: No Known Drug Allergy The patient's Home Medications are listed below: THE FOLLOWING MEDICATIONS NEED TO BE RECONCILED: Digoxin Oral Furosemide Oral Metoprolol Omeprazole Oral Pantoprazole Sodium Oral ProAir HFA Inhalation Pt. med list pulled from EMS Simvastatin Oral Spiriva HandiHaler Inhalation Warfarin Sodium Oral The source(s) of the original Home Medication information: Not obtained. The following Medications were given to the patient in the Emergency Department: IV NS IV Fluids bolus 0, administered: 11/20/2016 7:35:00 PM Calcium Gluconate [IVP] IVP 2 gm, administered: 11/20/2016 8:36:00 PM The following Medications were prescribed to the patient: Oxycodone 5 mg tablets: take 1 orally every 6 hours as needed for pain. Dispense fifteen (15). No refills. -- Bill Bradley MD
--- NOTE | 2016-11-21 21:18 | ED MED RECONCILIATION SUMMARY ---
Patient: NIKKI WILEY Medication Reconciliation Report [facility] VisitID: [id number] [place] [address] 71y, M Registration Date/Time: 11/20/2016 Weight: 97.5 kg Height/Length: 72 in. BMI: 29.2 ALLERGIES: No Known Drug Allergy The patient's Home Medications are listed below: THE FOLLOWING MEDICATIONS NEED TO BE RECONCILED: Digoxin Oral Furosemide Oral Metoprolol Omeprazole Oral Pantoprazole Sodium Oral ProAir HFA Inhalation Pt. med list pulled from EMS Simvastatin Oral Spiriva HandiHaler Inhalation Warfarin Sodium Oral The source(s) of the original Home Medication information: Not obtained. The following Medications were given to the patient in the Emergency Department: IV NS IV Fluids bolus 0, administered: 11/20/2016 7:35:00 PM Calcium Gluconate [IVP] IVP 2 gm, administered: 11/20/2016 8:36:00 PM The following Medications were prescribed to the patient: Oxycodone 5 mg tablets: take 1 orally every 6 hours as needed for pain. Dispense fifteen (15). No refills. -- Bill Bradley MD
--- NOTE | 2016-11-21 21:18 | ED MAR SUMMARY ---
..... Medication Administration Record Formerly [facility] [address] [place] [address] Patient: NIKKI WILEY Visit ID: [id number] 71y, M Weight: 97.5 kg Height/Length: 72 in BMI: 29.2 ALLERGIES: No Known Drug Allergy Start 19:35 11/20/2016 Madina Tapia R.N., Stop 21:35 11/20/2016 Madina Tapia R.N. Medication Administered: IV NS (SALINE), Dose: IV Fluids over 1 hour(s), Dispensed: 1000 mL bag, Site: #1 left forearm. Medication Ordered: IV NS : initial bolus none -, then 1000 mL/hr for X1 (NOW). Given 20:36 11/20/2016 Madina Tapia R.N. Medication Administered: CALCIUM GLUCONATE [IVP], Dose: 2 gm IVP over 1 hour(s), Site: #1 left forearm. Medication Ordered: Calcium Gluconate IV 2 gm/100mL (HIGH ALERT MEDICATION, NOW).
== END 2016-11-20 21:44 | disposition home or self-care (01) ==
LOC: ED SRH 18:59
DX: S42.321A Displaced transverse fracture of shaft of humerus, right arm, initial encounter for closed fracture (principal); F10.129 Alcohol abuse with intoxication, unspecified; E83.51 Hypocalcemia; W01.0XXA Fall on same level from slipping, tripping and stumbling without subsequent striking against object, initial encounter; Y93.01 Activity, walking, marching and hiking; Y99.9 Unspecified external cause status; Y92.009 Unspecified place in unspecified non-institutional (private) residence as the place of occurrence of the external cause; I10 Essential (primary) hypertension; I48.91 Unspecified atrial fibrillation; E78.00 Pure hypercholesterolemia, unspecified